=== PATIENT | male | born 1960 | race Two or more races ===

== ENCOUNTER 2024-12-02 02:52 | Emergency (ER) | payer MEDICARE, OTHER ==
[~2024-12-02] VITALS: Ht 172.7 cm; Wt 72.3 kg
[2024-12-02 03:00] VITALS: BP 129/75; PULSE 100; RESP 18; TEMP 99.9; O2SAT 98
--- NOTE | 2024-12-02 03:17 | ED.PDOC ---
History of Present Illness(SKN HPI Comments PATIENT BELIEVES HE WAS BITTEN BY A DOG A COUPLE DAYS AGO. PATIENT HAS PUNCTURE WOUNDS ON LEFT AND RIGHT HAND, HEALING. DENIES NUMBNESS WEAKNESS FEVER, CHILLS, NAUSEA OR VOMITING. DENIES OTHER POSSIBLE BITES. Chief Complaint: Wound Check Time Seen by MD: 03:04 History of Present Illness: Nurses Notes, Medications, Allergies Allergies: Coded Allergies: NO KNOWN ALLERGIES (Unverified , 12/02/24) Home Meds Active Scripts Ibuprofen Micronized (Ibuprofen) 800 Mg Tab, 800 MG PO TID PRN for 6 Days, #18 TAB Prov:[facility] 12/02/24 Amoxicillin & Pot Clavulanate (AUGMENTIN TABLET) 875 Mg Tb, 875 MG PO BID for 7 Days, #14 TAB Prov:LIV FREY [facility] 12/02/24 Information Source: Patient Mode of Arrival: Ambulatory Constitutional: denies: chills, diaphoresis, fatigue, fever, malaise, sweats, weakness, others EENTM: denies: blurred vision, double vision, ear bleeding, ear discharge, ear drainage, ear pain, ear ringing, eye pain, eye redness, hearing loss, mouth pain, mouth swelling, nasal discharge, nose bleeding, nose congestion, nose pain, photophobia, tearing, throat pain, throat swelling, voice changes, others Respiratory: denies: cough, hemoptysis, orthopnea, SOB at rest, shortness of breath, SOB with excertion, stridor, wheezing, others Cardiovascular: denies: chest pain, dizzy spells, diaphoresis, Dyspnea on exertion, edema, irregular heart beat, left arm pain, lightheadedness, palpitations, PND, syncope, others Gastrointestinal: denies: abdomen distended, abdominal pain, blood streaked bowels, constipated, diarrhea, dysphagia, difficulty swallowing, hematemesis, melena, nausea, poor appetite, poor fluid intake, rectal bleeding, rectal pain, vomiting, others Genitourinary: denies: burning, dysuria, flank pain, frequency, hematuria, incontinence, penile discharge, penile sore, pain, testicle pain, testicle swelling, urgency, others Neurological: denies: dizziness, fainting, headache, left sided numbness, left sided weakness, numbness, paresthesia, pre-existing deficit, right sided numbness, right sided weakness, seizure, speech problems, tingling, tremors, weakness, others Musculoskeletal: denies: back pain, gout, joint pain, joint swelling, muscle pain, muscle stiffness, neck pain, others Integumetry: reports: wounds; denies: bruises, change in color, change in hair/nails, dryness, laceration, lesions, lumps, rash, others Allergic/Immunocompromised: denies: Difficulty Healing, Frequent Infections, Hives, Itching, others Hematologic/Lymphatic: denies: anemia, blood clots, easy bleeding, easy bruising, swollen glands, others Endocrine: denies: excessive hunger, excessive sweating, excessive thirst, excessive urination, flushing, intolerance to cold, intolerance to heat, unexplained weight gain, unexplained weight loss, others Psychiatric: denies: anxiety, bipolar disorder, depression, hopeless, panic disorder, schizophrenia, sleepless, suicidal, others Physical Exam General Appearance: No Apparent Distress, Normal HEENT: Normal ENT Inspection, Pharynx Normal, TMs Normal Neck: Full Range of Motion, Non-Tender, Normal, Normal Inspection Respiratory: Chest Non-Tender, Lungs Clear, No Accessory Muscle Use, No Respiratory Distress, Normal Breath Sounds Cardiovascular: No Edema, No JVD, No Murmur, No Gallop, Normal Peripheral Pulses, Regular Rate/Rhythm Breast Exam: Deferred Gastrointestinal: No Organomegaly, Non Tender, No Pulsatile Mass, Normal Bowel Sounds, Soft Genitalia: Deferred Pelvic: Deferred Rectal: Deferred Extremities: No calf tenderness, Normal capillary refill, Normal inspection, Normal range of motion, Non-tender, No pedal edema Musculoskeletal : Apperance: Normal Neurologic: Alert, phd internship II-XII nml as Tested, No Motor Deficits, Normal Affect, Normal Mood, No Sensory Deficits Cerebellar Function: Normal Reflexes: Normal Skin: Dry, Normal Color, Warm, Wounds (PUNCTURE WOUND NOTED TO DORSUM ASPECT OF RIGHT HAND TRACE EDEMA NO NOTED DRAINAGE STRENGTH SENSORY MOTION INTACT) Lymphatic: No Adenopathy Was a procedure done? Was a procedure done?: No Differential Diagnosis (INTG) Differential Diagnosis: Cellulitis, Insect Envenomation, Laceration, Puncture Wound Differential Diagnosis: Abscess X-Ray, Labs, Meds, VS Vital Signs Date Time Temp Pulse Resp B/P (MAP) Pulse Ox O2 Delivery O2 Flow Rate FiO2 5/7/25 03:00 99.9 100 18 129/75 (93) 98 99.9 Current Medications Medications (Trade) Dose Ordered Sig/Gus Route Start Time Stop Time Status Last Admin Ceftriaxone Sodium (Rocephin) 1,000 mg ONCE ONCE IM 12/02/24 04:00 12/02/24 04:01 DC 12/02/24 04:35 Acetaminophen/ Hydrocodone Bitart (Combined [place] 5/325MG Tab) 1 tab ONCE ONCE PO 12/02/24 04:00 12/02/24 04:01 DC 12/02/24 04:30 Diphtheria/ Tetanus/Acell Pertussis (Boostrix T-Dap) 0.5 ml ONCE ONCE IM 12/02/24 04:15 12/02/24 04:16 DC 12/02/24 04:35 X-Ray, Labs, Meds, VS Comment PATIENT GIVEN TDAP, ROCEPHIN 1000 MG AND NORCO 5 MG P.O. PATIENT REPORTS IMPROVEMENT IN PAIN AND FUNCTION REQUESTING DISCHARGE AT THIS TIME. WOUND CLEANSED AND DRESSED. SCRIPT AUGMENTIN AND IBUPROFEN ADVISED TO TAKE MEDICATIONS PRESCRIBED SIDE EFFECTS DISCUSSED. FOLLOW UP WITH YOUR PCP URGENT CARE OR BACK IN THE ER IN 2 DAYS FOR WOUND RE-EVALUATION. ER RETURN PRECAUTIONS FOR SIGNS AND SYMPTOMS OF INFECTION NUMBNESS OR WEAKNESS OR ANY CONCERNING SYMPTOMS. PATIENT INDICATES UNDERSTANDING AND AGREES WITH DISCHARGE PLAN OF CARE. Time of 1ST Reevaluation: 03:05 Reevaluation 1ST: Unchanged Time of 2ND Reevaluation: 05:03 Reevaluation 2ND: Improved Patient Education/Counseling: Diagnosis, Treatment, Prognosis, Need For Follow Up Family Education/Counseling: Diagnosis, Treatment, Prognosis, Need For Follow Up Departure 1 Departure Time of Disposition: 05:03 Impression: Primary Impression: Dog bite of dorsum of hand Disposition: 01 HOME / SELF CARE / HOMELESS Condition: Stable e-Prescriptions Ibuprofen Micronized (Ibuprofen) 800 Mg Tab 800 MG PO TID PRN for 6 Days, #18 TAB Prov: LIV FREY 12/02/24 Amoxicillin & Pot Clavulanate (AUGMENTIN TABLET) 875 Mg Tb 875 MG PO BID for 7 Days, #14 TAB Prov: LIV FREY 12/02/24 Discharged With: Spouse Critical Care Note Critical Care Time?: No Stability Stability form required: No LIV FREY December 02, 2024 03:17
[2024-12-02] MEDS: HYDROcodone-ACET 5/325MG TAB PO ONE (04:30)
[2024-12-02] MEDS: TETANUS-DIPTH-ACEL PERTUSSIS 0.5ML SYR Tdap IM ONE (04:35)
[2024-12-02] MEDS: cefTRIAXone SOD 1,000 MG VL IM ONE (04:35)
[2024-12-02] MEDS ORDERED: AUG875T PO (05:04)
[2024-12-02] MEDS ORDERED: IBUP-1455 PO (05:04)
== END 2024-12-02 05:07 | disposition home or self-care (01) ==
LOC: ER 02:52
DX: S61.431A Puncture wound without foreign body of right hand, initial encounter (principal); S61.432A Puncture wound without foreign body of left hand, initial encounter; Z23 Encounter for immunization; W54.0XXA Bitten by dog, initial encounter; Y93.89 Activity, other specified; Y92.89 Other specified places as the place of occurrence of the external cause; Y99.8 Other external cause status
CPT/HCPCS: 90471; 90715; 96372; 99284; J0696